=== PATIENT | male | born 1960 | race Caucasian/White ===

== ENCOUNTER → 2017-10-29 09:47 | Outpatient (CLI) | payer BC, SELFPAY ==
--- NOTE | 2017-10-29 09:56 | XR_ITS ---
EXAM: XR lumbar spine min 4V HISTORY: ITS.REASON: SACROILIAC JOINT DYSFUNCTION ON LEFT SIDE, LBP ORDERING PHYSICIAN: Ronny Crespo MD PATIENT AGE: 57 years COMPARISON: CT scan abdomen pelvis 09/28/2015 FINDINGS: Normal alignment. No fracture or dislocation. No lytic or blastic change. No significant degenerative change. The disc spaces are preserved. There is no pars defect. Minor osteophytic spurring is seen at the L2-3 and L3-4 levels. The SI joints are normal. IMPRESSION: Minor degenerative changes mid lumbar spine as noted
--- NOTE | 2017-10-29 09:56 | XR_ITS ---
XR hip LT 2-3V w/pelvis HISTORY: ITS.REASON: SACROILIAC JOINT DYSFUNCTION ON LEFT SIDE, LBP ORDERING PHYSICIAN: Ronny Crespo MD PATIENT AGE: 57 years COMPARISON: None FINDINGS: No fracture or dislocation is evident. No significant degenerative change. No lytic or blastic change. Unremarkable soft tissues IMPRESSION: Negative AP pelvis and left hip
== END ==
PROVIDERS: PCP Internal Medicine Adolescent Medicine; Visit Provider Internal Medicine Adolescent Medicine
DX: M53.3 Sacrococcygeal disorders, not elsewhere classified (principal); M54.5 Low back pain
CPT/HCPCS: 72110; 73502

== ENCOUNTER → 2018-06-07 10:19 | Outpatient (CLI) | payer BC, SELFPAY | PROVIDERS: Visit Provider Surgery | DX: Z01.810 Encounter for preprocedural cardiovascular examination (principal); D17.0 Benign lipomatous neoplasm of skin and subcutaneous tissue of head, face and neck | CPT/HCPCS: 93005 ==

== ENCOUNTER 2018-12-12 14:36 | Outpatient (CLI) | payer BC, SELFPAY ==
[2018-12-12 14:45] VITALS: BP 148/86; PULSE 73; RESP 18; TEMP 36.4; O2SAT 96
[2018-12-12 15:15] VITALS: BP 132/76; PULSE 73; RESP 20; TEMP 36.7; O2SAT 97
[2018-12-12 15:50] VITALS: BMI 28.0
[2018-12-12 15:54] VITALS: BP 138/67; PULSE 76; RESP 18; TEMP 36.6; O2SAT 97
[2018-12-12 16:09] LABS: Basophils # 0.1 K/mm3 (0-0.2); Basophils % 0.8 % (0.1-2.0); Eosinophils # 0.1 K/mm3 (0.0-0.4); Eosinophils % 1.4 % (0.1-12.0); Hematocrit 48.2 % (42.0-52.0); Hemoglobin 16.5 g/dL (14.1-18.0); Lymphocytes # 1.1 K/mm3 (0.7-4.5); Lymphocytes % 19.9 % (10-50); Mean Corpuscular HGB Conc 34.2 g/dL (31.8-35.4); Mean Corpuscular Hemoglobin 30.9 pg (27.0-31.2); Mean Corpuscular Volume 90.4 fl (80-94); Mean Platelet Volume 7.4 fl (7.4-10.4); Monocytes # 0.3 K/mm3 (0.1-1.0); Monocytes % 4.8 % (1.7-9.3); Neutrophils # 4.2 K/mm3 (1.8-7.8); Neutrophils % 73.1 % (37.0-80.0); Platelet Count 178 K/mm3 (142-424); Red Blood Count 5.33 M/mm3 (4.60-6.20); Red Cell Distribution Width 14.1 % (11.5-17.5); White Blood Count 5.7 K/mm3 (4.8-10.8)
[2018-12-12 16:17] LABS: Alanine Aminotransferase 108 U/L (12-78); Albumin Level 4.3 gm/dL (3.4-5.0); Alkaline Phosphatase 56 U/L (46-116); Anion Gap 13.9 mEq/L (5-15); Aspartate Amino Transferase 48 U/L (15-37); Bilirubin,Total 0.8 mg/dL (0.2-1.0); Blood Urea Nitrogen 13 mg/dL (7-18); Calcium 9.2 mg/dL (8.5-10.1); Carbon Dioxide 28 mmol/L (21.0-32.0); Chloride 98 mmol/L (98-107); Creatinine Clearance Estimated 86 mL/min (50-200); Creatinine,Serum 1.17 mg/dL (0.70-1.30); Estimated Glomerular Filt Rate 64 ml/min (>60); GFR (African American) 78 ML/MIN (>60); Globulin 4.1 gm/dl (1.3-3.2); Glucose 197 mg/dL (74-106); Magnesium 1.6 mg/dL (1.4-2.2); Potassium 3.9 mmoL/L (3.5-5.1); Sodium 136 mmol/L (136-145); Total Protein,Serum 8.4 gm/dL (6.4-8.2)
[2018-12-12 16:43] VITALS: BP 154/82; PULSE 78; RESP 18; TEMP 36.6; O2SAT 97
[2018-12-12 16:56] VITALS: BP 132/79; PULSE 79; RESP 20; TEMP 36.6; O2SAT 96
[2018-12-12 16:57] LABS: Hemoglobin A1C 7.8 % (0.0-7.0)
--- NOTE | 2018-12-12 16:59 | XR_ITS ---
XR acute abdomen series HISTORY: ITS.REASON: ABD PAIN, DEHYDRATION ORDERING PHYSICIAN: Ronny Crespo MD PATIENT AGE: 58 years COMPARISON: None TECHNIQUE: Upright view of the chest is performed along with upright and supine views of the abdomen and pelvis. FINDINGS: An upright view of the chest shows no acute cardiac or pulmonary pathology. The lungs are clear. Nonspecific bowel gas pattern. There are few air-fluid levels within the large bowel which is nondilated. No evidence of small bowel obstruction or free air. IMPRESSION: Scattered air-fluid levels within nondilated large bowel nonspecific and could be seen with diarrhea or colitis
== END 2018-12-12 17:00 | disposition home or self-care (01) ==
LOC: INF 14:38
PROVIDERS: PCP Internal Medicine Adolescent Medicine; Visit Provider Internal Medicine Adolescent Medicine
DX: E86.0 Dehydration (principal); R10.9 Unspecified abdominal pain; R73.9 Hyperglycemia, unspecified
CPT/HCPCS: 74021; 80053; 83036; 83735; 85025; 96360; 96361

== ENCOUNTER → 2019-06-12 07:48 | Outpatient (CLI) | payer BC, SELFPAY ==
--- NOTE | 2019-06-12 07:53 | US_ITS ---
PROCEDURE: US GALLBLADDER CLINICAL INDICATION: DIFFUSED ABD PAIN Right upper quadrant pain with nausea COMPARISON: No exams were available for comparison FINDINGS: Pancreas: Unremarkable/Not well seen Liver: Unremarkable. There is appropriate direction of blood flow within a non dilated portal vein. Right kidney: Unremarkable appearing. No hydronephrosis. Gallbladder: No stones are evident. There is no gallbladder wall thickening. Common duct is normal in diameter. IMPRESSION: Negative gallbladder ultrasound. No stones evident. Dictated by: Dane Mccarty MD 06/12/2019 09:35 Electronically signed by Dane Mccarty MD in [place] 06/12/2019 09:35
== END ==
PROVIDERS: PCP Internal Medicine Adolescent Medicine; Visit Provider Internal Medicine Adolescent Medicine
DX: R10.84 Generalized abdominal pain (principal)
CPT/HCPCS: 76705

== ENCOUNTER → 2019-07-04 09:32 | Outpatient (CLI) | payer BC, SELFPAY ==
--- NOTE | 2019-07-04 09:37 | NM_ITS ---
PROCEDURE: NM HEPATOBILIARY W PHARM CLINICAL INDICATION: ABD PAIN Right upper quadrant pain COMPARISON: US GALLBLADDER from 06/12/2019 TECHNIQUE: DOSE: 8.29 mCi technetium Choletec and 1.7 mcg of CCK FINDINGS: Homogeneous activity is present within the hepatic parenchyma. Activity is present in the gallbladder by 10 minutes. Activity is present in the small bowel by 35 minutes. The gallbladder ejection fraction is calculated to be 99 percent. CCK-The patient did not report pain or other symptoms during CCK infusion. IMPRESSION: Unremarkable hepatobiliary scan and gallbladder ejection fraction. No evidence of common or cystic duct obstruction with normal ejection fraction Dictated by: Dane Mccarty MD 07/04/2019 15:48 Electronically signed by Dane Mccarty MD in [place] 07/04/2019 15:48
== END ==
PROVIDERS: PCP Internal Medicine Adolescent Medicine; Visit Provider Internal Medicine Adolescent Medicine
DX: R10.84 Generalized abdominal pain (principal)
CPT/HCPCS: 78227; A9537; J2805

== ENCOUNTER → 2020-03-17 16:22 | Outpatient (CLI) | payer BC, SELFPAY ==
--- NOTE | 2020-03-17 16:26 | XR_ITS ---
PROCEDURE: XR SHOULDER RT MIN 2V CLINICAL INDICATION: RT ANTERIOR SHOULDER PAIN COMPARISON: No exams were available for comparison FINDINGS: No fracture or dislocation. No lytic or blastic change. There is normal mineralization. There are mild osteoarthritic changes of the glenohumeral joint. There is a downsloping acromion with subacromial stenosis which may result in impingement symptomatology on the rotator cuff. Mild sclerosis with irregularity is present at the deltoid tuberosity which may also be seen with rotator cuff disease. Other findings:None. IMPRESSION: Osteoarthritis with subacromial stenosis and sclerosis along the greater tuberosity which may be seen with rotator cuff disease and may be better evaluated with MRI if clinically warranted Dictated by: Dane Mccarty MD 03/17/2020 18:57 Dane Mccarty MD in [place] 03/17/2020 18:57
== END ==
PROVIDERS: PCP Internal Medicine Adolescent Medicine; Visit Provider Internal Medicine Adolescent Medicine
DX: M25.511 Pain in right shoulder (principal)
CPT/HCPCS: 73030

== ENCOUNTER → 2020-04-12 07:56 | Outpatient (CLI) | payer BC, SELFPAY ==
--- NOTE | 2020-04-12 08:00 | MR_ITS ---
PROCEDURE: MR SHOULDER RT WO CON CLINICAL INDICATION: RIGHT ANTERIOR SHOULDER PAIN RT ANTERIOR SHOULDER PAIN. PAIN RAISING ARM ABOVE HEAD OR BEHIND BACK. SYMPTOMS X1YR. NO INJURY. PRIOR [id number] COMPARISON: CR XR SHOULDER RT MIN 2V from 03/17/2020 TECHNIQUE: Routine multiplanar multi echo sequences are performed without gadolinium enhancement. FINDINGS: There is acromioclavicular arthropathy with hypertrophic changes and subacromial stenosis. The subacromial space measures 5 mm. There is thinning of the supraspinatus tendon in the subacromial area with a full-thickness tear distally. A complete tear with tendon and muscle retraction does not appear to be present. The infraspinatus, subscapularis, and teres minor tendons appear intact. There are osteoarthritic changes of the glenohumeral joint. No evidence of labral tear or significant effusion. The bicipital tendon is in place. There is a small amount of fluid in the sub coracoid region. There is some cortical regularity of the greater tuberosity with a small amount of fluid at this region. Small subchondral cystic changes are present in the humeral head IMPRESSION: Acromioclavicular arthropathy with subacromial stenosis with thinning of the supraspinatus tendon and with a full-thickness tear. A complete tear does not appear to be present. There are osteoarthritic changes of the AC joint and glenohumeral joint. Cortical regularity involves the greater tuberosity with small amount of fluid at this region. Dictated by: Dane Mccarty MD 04/13/2020 13:45 Dane Mccarty MD in [place] 04/13/2020 13:45
== END ==
PROVIDERS: PCP Internal Medicine Adolescent Medicine; Visit Provider Internal Medicine Adolescent Medicine
DX: M25.511 Pain in right shoulder (principal)
CPT/HCPCS: 73221

== ENCOUNTER 2020-04-14 09:00 | Outpatient (RCR) | payer BC, SELFPAY ==
--- NOTE | 2020-03-26 14:12 | HMH.OTOPEV ---
OT Inpatient Evaluation Rehab OT Outpatient Eval Start: 03/26/20 14:02 Freq: Status: Active Protocol: Document 03/26/20 14:03 JUAN R (Rec: 03/26/20 14:12 [email or web address] [id number]) Electronically Signed By Asya Fay OT 03/26/20 14:03 Outpatient Therapy Subjective History Subjective History Pt is a 59 year old male who reports to therapy for initial evaluation to right shoulder. Pt reports he has had pain on and off in the right shoulder for years . He does not recall a specific injury causing the pain to begin. Pt explains the pain has become worse within the past month. Pt does demonstrate with decreased AROM and strength at right shoulder. Pt will continue to be seen twice a week in order to address all deficits. Chief Complaint Stiff,Weakness Symptom Type Ache,Throb,Sharp,Dull Symptoms Relieved By Rest/Positioning Symptoms Aggravated By Physical Activity,Lifting Prior Functional Limitations None Current Functional Limitations Reaching,Lifting,Housework, Sleeping,Recreation Activity Symptom Description Intermittent,Activity Dependent Level of pain today (0-10) 6 Pain scale - at its best (0-10) 0 Pain scale - at its worst (0-10) 8 Shoulder/Elbow Eval Shoulder Objective Measurements Shoulder ROM Right Shoulder ROM Limitations Pain Shoulder Abduction Active Range of 110 degrees Motion (degrees) Shoulder Flexion Active Range of Motion 130 degrees (degrees) Query Text: Shoulder External Rotation Active Range 70 degrees of Motion (degrees) Shoulder Internal Rotation Active Range 80 degrees of Motion (degrees) pain with active ROM shoulder exam right standard pain with passive ROM shoulder exam right standard decreased ROM shoulder exam standard right Shoulder MMT Shoulder Abduction Strength Grade 3- Fair- Shoulder Extension Strength Grade 4- Good- Shoulder Flexion Strength Grade 4- Good- Shoulder External Rotation Strength 4- Good- Grade Shoulder Internal Rotation Strength 4- Good- Grade Shoulder Strength Patient Testing Sitting Position Shoulder Special Tests impinge
== END 2020-04-14 10:02 | disposition home or self-care (01) ==
LOC: OT 09:00
PROVIDERS: PCP Internal Medicine Adolescent Medicine; Visit Provider Internal Medicine Adolescent Medicine
DX: M25.511 Pain in right shoulder (principal)
CPT/HCPCS: 97014; 97110; 97166; G0283

== ENCOUNTER → 2022-08-24 07:19 | Outpatient (CLI) | payer OTHER, SELFPAY ==
--- NOTE | 2022-08-24 07:31 | MR_ITS ---
FINAL REPORT CLINICAL HISTORY: ACUTE INTRACTABLE HEADACHE. DIZZINESS. FOOGY FEELING WORSE X2 MONTHS COMPARISON: None FINDINGS: Multiplanar MR imaging of the brain was performed without contrast. There is no evidence of intracranial hemorrhage or mass. The ventricular size is normal. There is no evidence of shift of the midline structures. No area of restricted diffusion is identified. The posterior fossa and brainstem have an unremarkable appearance. Normal major vessel vascular flow voids are seen. IMPRESSION: Unremarkable brain with no focal abnormality identified. Reviewed, Interpreted and Dictated by Ray Riley III, MD Transcribed by Goldie Paredes Authenticated and . [facility]
== END ==
LOC: RAD 07:22
PROVIDERS: PCP Internal Medicine Adolescent Medicine; Visit Provider Internal Medicine Adolescent Medicine
DX: R51.9 Headache, unspecified (principal)
CPT/HCPCS: 70551

== ENCOUNTER 2023-09-03 16:50 | Emergency (ER) | payer BC, SELFPAY ==
--- NOTE | 2023-09-03 17:03 | XR_ITS ---
PROCEDURE INFORMATION: Exam: XR Left Hand Exam date and time: 09/03/2023 5:08 PM Age: 63 years old Clinical indication: Pain; Hand; Left; Additional info: Drill bit puncture wound TECHNIQUE: Imaging protocol: Radiologic exam of the left hand. Views: 3 or more views. COMPARISON: No relevant prior studies available. FINDINGS: Bones/joints: There is no evidence of acute fracture or dislocation. Minor degenerative changes involve the 2nd MCP joint as well as 1st carpal/metacarpal joint and scaphoid trapezium/trapezoid articulations. Soft tissues: No significant soft tissue edema. No subcutaneous emphysema or radiopaque foreign bodies. Prominent atherosclerotic vascular calcifications involve the visualized vessels of the distal forearm. IMPRESSION: No acute posttraumatic osseous injury.
[2023-09-03 18:00] VITALS: BP 160/82; PULSE 70; RESP 18; TEMP 36.8; O2SAT 99; BMI 25.8
--- NOTE | 2023-09-03 18:16 | ED_ITS ---
Discharge Plan Disposition Patient Disposition: Home, Self-Care Condition: Good Prescriptions Prescriptions: New cephalexin 500 mg capsule 500 mg PO QID Qty: 40 0RF mupirocin 2 % ointment 1 applic topical TID 7 Days Qty: 15 0RF No Action rosuvastatin 10 mg tablet 10 mg PO DAILY omeprazole 40 mg capsule,delayed release(DR/EC) 40 mg PO DAILY aspirin 81 mg tablet,chewable 81 mg PO DAILY escitalopram oxalate 10 mg tablet 10 mg PO DAILY dapaglifloz propaned-metformin [Xigduo XR] 10-1,000 mg tablet, IR - ER, biphasic 24hr 1 tab PO DAILY Referrals Follow up/Referrals: Chase Gómez DO [Staff Physician] - See instructions Ronny Crespo MD [Primary Care Provider] - See instructions Activity Restrictions/Add. Instructions Additional Instructions/Restrictions: Keep the wound clean and dry. Watch the wound for signs of infection, such as redness, swelling, drainage, fever. etc. Take tylenol or ibuprofen for pain. Follow up with your regular doctor. GO TO THE ER FOR ANY WORSENING SYMPTOMS OR CONCERNS. Rest the extremity, Elevate the extremity as tolerated while you are resting. Follow up with Dr. Gómez (orthopedics) or your hand specialist that you've seen in the past if you continue to have symptoms. I put in a referral but you need to call his office and schedule an appointment. Follow up with your regular doctor. GO TO THE ER FOR ANY WORSENING SYMPTOMS Clinical Impressions Clinical Impression: Puncture wound of left hand, Need for Tdap vaccination, Left hand pain Stand Alone Forms Stand Alone Forms: Work/School Release Instructions Patient Instructions: Tetanus, Diphtheria, and Pertussis Vaccine, DI for Puncture Wound, Cephalexin Discharge ED Provider: Ghulam Ramirez [facility] General Stated complaint: AO 08/31 1700 left hand cut w/ drill bit Mode of Arrival: Ambulatory Source of Information: Patient Limitations: No Limitations Time Seen by Provider: 09/03/23 18:16 Description of Symptoms (Recalled from Triage Doc. by RN): Pt's has a puncture wound from a drill bit on left hand. HEENT Symptoms (Recalled from RN notes): No Resp Symptoms (Recalled from RN notes): No Skin Symptoms (Recalled from RN notes): Yes MS Symptoms (Recalled from RN notes): No Functional Status (Recalled from RN notes): n/a History of Present Illness Provider Complaint: He states that he was using a drill yesterday when he slipped and ran the drill bit into the palm of his left hand. Since then he has had left hand pain and swelling. He is not a diabetic. His tetanus immunization is not up to date. Related Data Home Medications Medication Instructions Recorded Confirmed aspirin 81 mg chewable tablet 81 mg PO DAILY Blood thinner 01/25/18 09/03/23 omeprazole 40 mg capsule,delayed 40 mg PO DAILY stomach 01/25/18 09/03/23 release rosuvastatin 10 mg tablet 10 mg PO DAILY Cholesterol 06/05/18 09/03/23 dapagliflozin propaned 10 1 tab PO DAILY 09/03/23 09/03/23 mg-metformin ER 1,000 mg tablet,ext rel 24hr (Xigduo XR) escitalopram oxalate 10 mg tablet 10 mg PO DAILY 09/03/23 09/03/23 Previous Rx's Medication Instructions Recorded cephalexin 500 mg capsule 500 mg PO QID #40 caps 09/03/23 mupirocin 2 % topical ointment 1 applic topical TID 7 days #15 09/03/23 grams Allergies Allergy/AdvReac Type Severity Reaction Status Date / Time No Known Allergies Allergy Verified 09/03/23 18:16 Worker's Comp Is this a Worker's Comp case?: No [facility] Disclaimer: The information contained in this section may have been updated after the patient was seen, as this information can be updated by other users. Medical History (Updated 09/03/23 @ 18:57 by Ghulam Ramirez APRN) Heart attack Social History Smoking Status: Never smoker second hand exposure: No alcohol intake: current alcohol intake frequency: a few times a month substance use type: denies use current occupational status: employed Travel in the last 8 weeks: None household members: spouse housing: house current occupation: [employer] current occupational exposures/hazards: No caffeine: Yes ROS Obtained: Yes All systems reviewed & no additional complaints except as documented Constitutional Constitutional: Denies chills and Denies fever(s) Eyes Eyes: Denies eye discharge ENT Ears, Nose, Mouth, and Throat: Denies dizziness, Denies otalgia and Denies sore throat Cardiovascular Cardiovascular: Denies chest pain Respiratory Respiratory: Denies shortness of breath, Denies chest congestion, Denies cough, Denies stridor and Denies wheezing Gastrointestinal Gastrointestingal: Denies nausea or vomiting Musculoskeletal Musculoskeletal: Reports system reviewed and no additional complaints, except as documented and Denies arthralgias Integumentary/Breasts Skin/Breast: Reports wounds Neurologic Neurologic: Denies dizziness and Denies paresthesias Allergic/Immunologic Allergic/Immunologic: Denies wheezing Physical Exam General General appearance: alert and in no apparent distress Head Head exam: atraumatic, normocephalic and normal inspection Eye Eye exam: Present normal appearance, PERRL and EOMI ENT ENT exam: Present normal exam, normal oropharynx, mucous membranes moist, TM's normal bilaterally and normal external ear exam Neck Neck exam: Present normal inspection, full ROM and trachea midline; Absent meningismus or lymphadenopathy Chest Chest inspection: Present normal inspection and symmetric chest wall rise; Absent tenderness Respiratory Respiratory exam: Present normal lung sounds bilaterally; Absent respiratory distress Cardiovascular Cardiovascular exam: Present regular rate and normal rhythm; Absent JVD Abdominal Exam Abdominal exam: Present soft and normal bowel sounds; Absent distention, tenderness or guarding Extremities Exam Extremities exam: Present normal capillary refill; Absent calf tenderness Expanded Upper Extremity Exam Left: Forearm/Wrist exam: Present normal inspection and full ROM; Absent tenderness, tenderness over anatomical snuff box or pain with axial thumb loading Hand exam: Present full ROM and tenderness; Absent swelling, abrasion, laceration, skin avulsion, ecchymosis, deformity, crepitus, dislocation, erythema, amputation, nail avulsion or subungual hematoma Neuromotor exam: Normal wrist extension, thumb opposition, thumb IP flexion, thumb adduction and fingers 2-5 abduction Neurosensory exam: Normal radial nerve, ulnar nerve and median nerve Vascular exam: Normal capillary refill, radial pulse and ulnar pulse Back Exam Back exam: Present normal inspection; Absent tenderness Neurological Exam Neurological exam: Present alert and oriented X3 Psychiatric Psychiatric exam: Present normal affect and normal mood Skin Skin exam: Present other (there is a puncture wound to the palm of his left hand, no foreign body noted) Lymphatic Lymphatic Findings: no adenopathy Medical Decision Making Medical Records Medical records reviewed: No I reviewed the patient's medical records. [place] Inquiry Pt receiving controlled substance: No Vital Signs: 09/03/23 18:00 Temperature 98.2 F Temperature Source Oral Pulse Rate [Right Radial] 70 Respiratory Rate 18 Blood Pressure [Right Arm] 160/82 H Blood Pressure Mean [Right Arm] 108 Blood Pressure Source [Right Arm] Automatic Cuff Blood Pressure Position [Right Arm] Sitting 02 Sat by Pulse Oximetry 99 Oxygen Delivery Method Room Air Orders (Tests/Meds): ORDERS Category Date Time Status Hand XR left minimum 3 views [XR hand LT min 3V] Stat Exams 09/03/23 17:03 Completed Radiology Data #1: Image(s): Hand Image Reviewed: Yes I reviewed the patient's radiology image and Yes I have reviewed radiologist's interpretation Preliminary Findings: Normal/NAD Accession No. : [id number] Patient Name / ID : HARVEY MORELAND / [id number] Exam Date : 09/03/2023 17:08:27 ( Final ) Study Comment : Sex / Age : M / 63Y Creator : AMARILIS SANTO MD Dictator : Unified Communications Architect : Primary Therapist : AMARILIS SANTO MD Approver2 : Report Date : 09/03/2023 17:38:10 My Comment : PROCEDURE INFORMATION: Exam: XR Left Hand Exam date and time: 09/03/2023 5:08 PM Age: 63 years old Clinical indication: Pain; Hand; Left; Additional info: Drill bit puncture wound TECHNIQUE: Imaging protocol: Radiologic exam of the left hand. Views: 3 or more views. COMPARISON: No relevant prior studies available. FINDINGS: Bones/joints: There is no evidence of acute fracture or dislocation. Minor degenerative changes involve the 2nd MCP joint as well as 1st carpal/metacarpal joint and scaphoid trapezium/trapezoid articulations. Soft tissues: No significant soft tissue edema. No subcutaneous emphysema or radiopaque foreign bodies. Prominent atherosclerotic vascular calcifications involve the visualized vessels of the distal forearm. IMPRESSION: No acute posttraumatic osseous injury.
[2023-09-03] MEDS: TET/DIPHTH/PERT-ADULT 0.5ML SYRINGE 0.5 ML IM (18:20)
[2023-09-03 19:03] VITALS: BP 160/82; PULSE 70; RESP 18; TEMP 36.8; O2SAT 99
== END 2023-09-03 19:03 | disposition home or self-care (01) ==
PROVIDERS: Emergency Provider Nurse Practitioner Family; PCP Internal Medicine Adolescent Medicine
DX: M79.642 Pain in left hand (principal); S61.432A Puncture wound without foreign body of left hand, initial encounter; W45.8XXA Other foreign body or object entering through skin, initial encounter; Z23 Encounter for immunization
CPT/HCPCS: 73130; 90471; 90715; 99204; 99212; G0463

== ENCOUNTER 2023-12-28 13:40 | Outpatient (CLI) | payer OTHER, SELFPAY ==
[2023-12-28 18:55] LABS: Basophils % 0.5 % (0.1-2.0); Eosinophils # 0.1 K/mm3 (0.0-0.4); Eosinophils % 2.1 % (0.1-12.0); Hematocrit 48.8 % (42.0-52.0); Hemoglobin 16.1 g/dL (14.1-18.0); Lymphocytes # 1.5 K/mm3 (0.7-4.5); Lymphocytes % 29.2 % (10-50); Mean Corpuscular HGB Conc 32.9 g/dL (31.8-35.4); Mean Corpuscular Hemoglobin 31.8 pg (27.0-31.2); Mean Corpuscular Volume 96.5 fl (80-94); Mean Platelet Volume 9.2 fl (7.4-10.4); Monocytes # 0.4 K/mm3 (0.1-1.0); Monocytes % 7.3 % (1.7-9.3); Neutrophils # 3.2 K/mm3 (1.8-7.8); Neutrophils % 60.9 % (37.0-80.0); Platelet Count 162 K/mm3 (142-424); Red Blood Count 5.06 M/mm3 (4.60-6.20); White Blood Count 5.2 K/mm3 (4.8-10.8)
[2023-12-28 19:18] LABS: Hemoglobin A1C 6.6 % (4.0-6.0)
[2023-12-28 19:23] LABS: Alanine Aminotransferase 78 U/L (12-78); Albumin Level 4.5 g/dl (3.5-5.0); Albumin/Globulin Ratio 1.3 (1.1-1.8); Alkaline Phosphatase 56 U/L (38-126); Amylase 86 U/L (30-110); Anion Gap 15.2 mEq/L (5-15); Aspartate Amino Transferase 55 U/L (17-59); Blood Urea Nitrogen 13 mg/dl (9-20); Calcium 9.3 mg/dl (8.4-10.2); Carbon Dioxide 23 mmol/L (22.0-30.0); Chloride 104 mmol/L (98-107); Estimated Glomerular Filt Rate 115 ml/min (>60); GFR (African American) 139 ML/MIN (>60); Globulin 3.4 g/dL (1.3-3.2); Glucose 121 mg/dl (74-100); Lipase 343 U/L (23-300); Potassium 4.2 mmoL/L (3.5-5.1); Sodium 138 mmol/L (136-145); Total Protein,Serum 7.9 g/dl (6.3-8.2)
== END 2023-12-28 23:59 | disposition home or self-care (01) ==
LOC: LAB.DROPOF 12-31 13:40
PROVIDERS: PCP Student in an Organized Health Care Education/Training Program; Visit Provider Student in an Organized Health Care Education/Training Program
DX: R19.7 Diarrhea, unspecified (principal)
CPT/HCPCS: 80053; 82150; 83036; 83690; 85025

== ENCOUNTER 2023-12-28 14:49 | Outpatient (CLI) | payer OTHER, SELFPAY ==
[2023-12-28 15:08] LABS: Adenovirus F 40/41, stool Not Detected (NotDetected); Astrovirus Not Detected (NotDetected); Campylobacter Not Detected (NotDetected); Clostridium Difficile A/B, PCR Not Detected (NotDetected); Cryptosporidium Not Detected (NotDetected); Cyclospora Cayetanesis Not Detected (NotDetected); Entamoeba histolytica Not Detected (NotDetected); Enteroaggregative E coli Not Detected (NotDetected); Enterotoxigenic E coli Not Detected (NotDetected); Giardia lamblia Not Detected (NotDetected); Norovirus Not Detected (NotDetected); Plesimonas Shigalloides, PCR Not Detected (NotDetected); Rotavirus A Not Detected (NotDetected); Salmonella, PCR Not Detected (NotDetected); Sapovirus Not Detected (NotDetected); Shiga-like toxin E coli Not Detected (NotDetected); Shigella Enterovasive E coli Not Detected (NotDetected); Vibrio Cholerae Not Detected (NotDetected); Vibrio, PCR Not Detected (NotDetected); Yersinia Entercolitica, PCR Not Detected (NotDetected)
[2023-12-28 20:37] LABS: Enteropathogenic E coli Detected (NotDetected)
== END 2023-12-28 23:59 | disposition home or self-care (01) ==
PROVIDERS: PCP Student in an Organized Health Care Education/Training Program; Visit Provider Student in an Organized Health Care Education/Training Program
DX: R19.7 Diarrhea, unspecified (principal)
CPT/HCPCS: 87507